=== PATIENT | female | born 1940 | race Caucasian/White ===

== ENCOUNTER 2017-08-28 15:18 | Emergency (ER) | payer MEDICARE, OTHER ==
[2017-08-28] MEDS ORDERED: MORPHINE SULFATE 10 MG/ML INJ IM ONE (15:35)
[2017-08-28] MEDS ORDERED: ONDANSETRON 4 MG TAB.RAPDIS PO ONE (15:35)
--- NOTE | 2017-08-28 15:42 | ER Document Report ---
ED Medical Screen (RME) - General Chief Complaint: Knee Pain Stated Complaint: KNEE PAIN/SWELLING Time Seen by Provider: 08/28/17 15:30 Notes: RME DISCLOSURE I have seen this patient as part of a Rapid Medical Evaluation and, if applicable, placed any initially appropriate orders. The patient will be seen and fully evaluated, including a full history and physical exam, by a provider ( in Main ED or Fast Track) when a room becomes available. 77-year-old female here with complaints of right knee thigh and leg pain ongoing for the past few days. Patient just underwent a [address] trip over the past few days when she drove across the country. She does have a history of pseudogout but not DVT. She is afraid she may have a DVT. TRAVEL OUTSIDE OF THE [place] IN LAST 30 DAYS: No - Related Data Allergies/Adverse Reactions: meperidine [From Demerol] Allergy (Verified 08/28/17 15:22) hydromorphone [From Dilaudid] Adverse Reaction (Verified 08/28/17 15:22) Physical Exam - Vital signs Vitals: Temp Pulse Resp BP Pulse Ox 98.8 F 92 16 147/71 H 96 08/28/17 15:26 08/28/17 15:26 08/28/17 15:26 08/28/17 15:26 08/28/17 15:26 Course - Vital Signs Vital signs: Temp Pulse Resp BP Pulse Ox 98.8 F 92 16 147/71 H 96 08/28/17 15:26 08/28/17 15:26 08/28/17 15:26 08/28/17 15:26 08/28/17 15:26
[2017-08-28 16:22] LABS: ABSOLUTE BASOPHILS # (AUTO) 0.1 10^3/uL (0.0-0.2); ABSOLUTE EOSINOPHILS # (AUTO) 0.1 10^3/uL (0.0-0.6); ABSOLUTE LYMPHOCYTES (AUTO) 1.5 10^3/uL (0.5-4.7); ABSOLUTE MONOCYTES (AUTO) 0.8 10^3/uL (0.1-1.4); ABSOLUTE NEUT (AUTO) 6.6 10^3/uL (1.7-8.2); BASOPHILS % (AUTO) 0.7 % (0-2); EOSINOPHILS % (AUTO) 1.1 % (0-6); HEMATOCRIT 36.5 % (36.0-47.0); HEMOGLOBIN 12.2 g/dL (12.0-15.5); LYMPHOCYTES % (AUTO) 16.2 % (13-45); MEAN CORPUSCULAR HEMOGLOBIN 26.6 pg (27.0-33.4); MEAN CORPUSCULAR HGB CONC 33.5 g/dL (32.0-36.0); MEAN CORPUSCULAR VOLUME 80 fl (80-97); MONOCYTES % (AUTO) 9.2 % (3-13); PLATELET COUNT 293 10^3/uL (150-450); RED BLOOD COUNT 4.59 10^6/uL (3.72-5.28); RED CELL DISTRIBUTION WIDTH 14.2 % (11.5-14.0); SEGMENTED NEUTROPHILS % (AUTO) 72.8 % (42-78); TOTAL CELLS COUNTED % (AUTO) 100 %
[2017-08-28 16:44] LABS: ANION GAP 9 (5-19); BLOOD UREA NITROGEN 17 mg/dL (7-20); CALCIUM 9.4 mg/dL (8.4-10.2); CARBON DIOXIDE 28 mmol/L (22-30); CHLORIDE 106 mmol/L (98-107); GLUCOSE 152 mg/dL (75-110); SODIUM 142.7 mmol/L (137-145); URIC ACID 3.9 mg/dL (2.5-7.5)
[2017-08-28 16:46] LABS: POTASSIUM 2.6 mmol/L (3.6-5.0)
[2017-08-28] MEDS ORDERED: POTASSIUM CHLORIDE 10 MEQ TABLET.SA PO ONE (16:57)
[2017-08-28] MEDS ORDERED: COLCHICINE 0.6 MG TABLET PO ONE (17:05)
[2017-08-28] MEDS ORDERED: FENTANYL CITRATE INJ/PF 100 MCG/2 ML AMPUL IV ONE (17:05)
[2017-08-28] MEDS: POTASSI CL 20 MEQ/50 ML RIDER 20 MEQ/50 ML RTUPB IV SCH ×2 (17:08→19:27)
--- NOTE | 2017-08-28 17:29 | RADIOLOGY REPORT (SQ) ---
EXAM DESCRIPTION: VENOUS UNILATERAL LOWER COMPLETED DATE/TIME: 08/28/2017 5:16 pm REASON FOR STUDY: [address], R leg thigh swelling; eval DVT COMPARISON: None. TECHNIQUE: Dynamic and static javier scale and color images acquired of the right leg venous system. S elected spectral images acquired with additional compression and augmentation maneuvers. The contrala teral common femoral vein and saphenofemoral junction were also imaged. Images stored on PACS. LIMITATIONS: None. FINDINGS: COMMON FEMORAL: Normal phasicity, compression and augmentation. No visualized echogenic ma terial on javier scale. No defects on color images. FEMORAL: Normal compression and augmentation. No visualized echogenic material on javier scale. No defe cts on color images. POPLITEAL: Normal compression, augmentation. No visualized echogenic material on javier scale. No defec ts on color images. CALF VESSELS: Normal compression, augmentation. No visualized echogenic material on javier scale. No de fects on color images. GSV and SSV: Normal compression, augmentation. No visualized echogenic material on javier scale. No def ects on color images. ANY DEEP VENOUS INSUFFICIENCY: Not evaluated. ANY EVIDENCE OF POPLITEAL CYST: No. OTHER: No other significant finding. CONTRALATERAL COMMON FEMORAL VEIN AND SAPHENOFEMORAL JUNCTION: Normal phasicity, compression and augmentation. No visualized echogenic material on javier scale. No de fects on color images. IMPRESSION: NO EVIDENCE DVT OR SVT IN THE RIGHT LEG. TECHNICAL DOCUMENTATION: JOB ID: [id number] [place]-72 2010 [employer]- All Rights Reserved Reading location - IP/workstation name: [email or web address]
--- NOTE | 2017-08-28 18:07 | ER Document Report ---
ED Extremity Problem, Lower - General Chief Complaint: Knee Pain Stated Complaint: KNEE PAIN/SWELLING Time Seen by Provider: 08/28/17 15:30 Mode of Arrival: Ambulatory Information source: Patient Notes: Patient is a 77-year-old female who presents to the ER today for 2 days of right knee pain and swelling. Patient did just take a trip from [place] in a car to here in the past couple of days and the right knee pain and swelling started yesterday after the trip. She denies any history of blood clots, she is on a blood thinners. She does have a history of pseudogout and reports that the knee is so tender she cannot even lay a sheet over it. She admits that it feels warm to the touch but she denies any redness. She denies fevers or chills. TRAVEL OUTSIDE OF THE [place] IN LAST 30 DAYS: No - Related Data Allergies/Adverse Reactions: meperidine [From Demerol] Allergy (Verified 08/28/17 15:22) hydromorphone [From Dilaudid] Adverse Reaction (Verified 08/28/17 15:22) Past Medical History - General Information source: Patient - Social History Smoking Status: Never Smoker Chew tobacco use (# tins/day): No Frequency of alcohol use: None Drug Abuse: None Patient has suicidal ideation: No Patient has homicidal ideation: No - Past Medical History Cardiac Medical History: Reports: Hx Hypercholesterolemia, Hx Hypertension Endocrine Medical History: Reports: Hx Diabetes Mellitus Type 2 Renal/ Medical History: Denies: Hx Peritoneal Dialysis Past Surgical History: Reports: Hx Appendectomy, Hx Hysterectomy, Hx Orthopedic Surgery - back sx Review of Systems - Review of Systems Constitutional: No symptoms reported EENT: No symptoms reported Cardiovascular: No symptoms reported Respiratory: No symptoms reported Gastrointestinal: No symptoms reported Genitourinary: No symptoms reported Female Genitourinary: No symptoms reported Musculoskeletal: See HPI Skin: See HPI Hematologic/Lymphatic: No symptoms reported Neurological/Psychological: No symptoms reported Physical Exam - Vital signs Vitals: Temp Pulse Resp BP Pulse Ox 98.8 F 92 16 147/71 H 96 08/28/17 15:26 08/28/17 15:26 08/28/17 15:26 08/28/17 15:26 08/28/17 15:26 - Notes Notes: PHYSICAL EXAMINATION: GENERAL: Obviously in pain, holding right knee but in no acute distress. HEAD: Atraumatic, normocephalic. EYES: Pupils equal round and reactive to light, extraocular movements intact, sclera anicteric, conjunctiva are normal. NECK: Normal range of motion, supple without lymphadenopathy LUNGS: CTAB and equal. No wheezes rales or rhonchi. HEART: Regular rate and rhythm without murmurs ABDOMEN: Soft, no tenderness. No guarding, no rebound BACK: no vertebral tenderness, normal ROM GI/: no CVA tenderness EXTREMITIES: Limited range of motion of the right knee, edematous and warm to the touch anteriorly, exquisitely tender to palpation to entirety of right knee , no pitting edema. No cyanosis. NEUROLOGICAL: Cranial nerves grossly intact. Normal sensory/motor exams. PSYCH: Normal mood, normal affect. SKIN: Warm, Dry, normal turgor, see extremities above Course - Re-evaluation Re-evalutation: 08/28/17 18:11 Ultrasound negative for any DVT or SVT of the right lower extremity, patient's potassium came back at 2.6. She does state that she has chronically low potassium and does take 10 mEq of potassium a day. She does state that she usually only has low potassium "when I have a flare of something." She states that this is happened before when she has had gout and also when she has had pneumonia. She does now admit to a cough over the past few weeks but denies any shortness of breath or wheezing. Has no history of asthma or COPD but has had bronchitis before. For this reason I ordered a chest x-ray. Chest x-ray negative for any acute pathology. Patient was given IV potassium as well as p.o. potassium here in the emergency department, because this is a chronic issue I have replaced potassium here and will have her follow-up with primary care provider. I will treat her for gout of her right knee as clinically this makes the most sense and ultrasound negative for any DVT today. She has no injury, x-ray was not performed. - Vital Signs Vital signs: Temp Pulse Resp BP Pulse Ox 98.8 F 92 16 147/71 H 96 08/28/17 15:26 08/28/17 15:26 08/28/17 15:26 08/28/17 15:26 08/28/17 15:26 - Laboratory Result Diagrams: 08/28/17 16:00 08/28/17 16:00 Laboratory results interpreted by me: 08/28/17 08/28/17 16:00 16:00 MCH 26.6 L RDW 14.2 H Potassium 2.6 L* Glucose 152 H Discharge - Discharge Clinical Impression: Hypokalemia Gout of right knee Qualifiers: Gout etiology: unspecified cause Chronicity: acute Qualified Code(s): M10.9 - Gout, unspecified Condition: Stable Disposition: HOME, SELF-CARE Additional Instructions: You have very low potassium today, he likely need to increase the dose of potassium that you take on a daily basis. Please follow-up with your primary care provider to do this after he checks your potassium again. Return immediately for any new or worsening symptoms. Follow up with primary care provider, call tomorrow to make followup appointment. Prescriptions: Indomethacin [Indocin 50 mg Capsule] 50 mg PO TID PRN #30 capsule PRN Reason:
--- NOTE | 2017-08-28 18:17 | RADIOLOGY REPORT (SQ) ---
EXAM DESCRIPTION: CHEST SINGLE VIEW COMPLETED DATE/TIME: 08/28/2017 5:53 pm REASON FOR STUDY: cough, chills COMPARISON: None. EXAM PARAMETERS: NUMBER OF VIEWS: One view. TECHNIQUE: Single frontal radiographic view of the chest acquired. RADIATION DOSE: NA LIMITATIONS: None. FINDINGS: LUNGS AND PLEURA: No opacities, masses or pneumothorax. No pleural effusion. MEDIASTINUM AND HILAR STRUCTURES: No masses. Contour normal. HEART AND VASCULAR STRUCTURES: Heart normal in size. Normal vasculature. BONES: No acute findings. HARDWARE: None in the chest. OTHER: No other significant finding. IMPRESSION: NO ACUTE RADIOGRAPHIC FINDING IN THE CHEST. TECHNICAL DOCUMENTATION: JOB ID: [id number] [employer]- All Rights Reserved Reading location - IP/workstation name: [email or web address]
[2017-08-28] MEDS ORDERED: OXYCODONE-ACETAMINOPHEN 5-325 MG TABLET PO ONE (19:45)
[2017-08-28] MEDS ORDERED: HYDROCODONE/ACETAMINOPHEN 5-325 MG (6 TAB/ER DISP) PO PRN (20:54)
[2017-08-28] MEDS ORDERED: ONDANSETRON ODT 4 MG TAB (6 TAB/ER DISP) PO PRN (20:54)
[2017-08-28 21:27] VITALS: BP 131/58
== END 2017-08-28 21:38 | disposition home or self-care (01) ==
LOC: ER 15:18
DX: E87.6 Hypokalemia (principal); M10.9 Gout, unspecified; M25.561 Pain in right knee; M25.461 Effusion, right knee; E78.00 Pure hypercholesterolemia, unspecified; I10 Essential (primary) hypertension; E11.9 Type 2 diabetes mellitus without complications; Z79.02 Long term (current) use of antithrombotics/antiplatelets; Z88.6 Allergy status to analgesic agent; Z90.710 Acquired absence of both cervix and uterus
CPT/HCPCS: 99284; 96372; 96375; 96365; 96366; 36415; 84550; 85025; 80048; 93971; 71045; A9270 ×6; J3010; J2270; J3480; S0119